=== PATIENT | female | born 1995 | race Caucasian/White ===

== ENCOUNTER 2018-10-31 02:08 | Emergency (ER) | payer OTHER ==
[~2018-10-31] VITALS: Ht 175.3 cm; Wt 113.6 kg
[2018-10-31 03:55] VITALS: BP 125/76
[2018-10-31] MEDS: TraMADol HCL 50 MG TABLET PO ONE (04:01)
== END 2018-10-31 04:12 | disposition home or self-care (01) ==
LOC: EMS 02:11
DX: S09.90XA Unspecified injury of head, initial encounter (principal); V49.40XA Driver injured in collision with unspecified motor vehicles in traffic accident, initial encounter; Y93.89 Activity, other specified; Y92.89 Other specified places as the place of occurrence of the external cause; Y99.8 Other external cause status
CPT/HCPCS: 70450